=== PATIENT | female | born 1930 | race Caucasian/White ===

== ENCOUNTER 2017-03-08 03:03 | Emergency (ER) | payer OTHER ==
[~2017-03-08 03:03] MED LIST: ASPI81CH37 CHEW; CHOLESTEROL MED; HTN MED; MULT1TAB84 PO
[2017-03-08 03:05] VITALS: BP 132/65; PULSE 93; RESP 18; TEMP 97.5; O2SAT 99
[2017-03-08] MEDS ORDERED: LIDOCAINE HCL 1% PF 30 ML VIAL INFIL ONE (03:15)
[2017-03-08] MEDS ORDERED: TETANUS/DIPHTHERIA TOXOID ADULT 0.5 ML VIAL IM ONE (03:15)
--- NOTE | 2017-03-08 03:44 | PD ---
HPI Chief Complaint: Fall Time Seen by Provider: 03:16 Travel History International Travel<30 days: No Contact w/Intl Traveler<30days: No Traveled to known affect area: No History of Present Illness HPI 86-year-old female presents to the emergency department by EMS transport for evaluation of fall with forehead laceration. Unwitnessed fall. Unknown loss of consciousness. Patient notified EMS and family with life alert. Patient complains of forehead pain. Patient also noted to have abrasion to the left cheek. Patient denies neck pain chest pain rib pain back pain abdominal pain pelvic pain or extremity pain. Patient has extensive arthritis. Patient does not complain of any chest pain palpitations sweats or shortness of breath. No vomiting. Patient reportedly was up getting out of bed and fell onto the floor. Tetanus status unknown. Patient reportedly at her baseline mentation per EMS reportedly provided by family at the scene. PFSH Past Medical History Narrative Medical Hypertension dyslipidemia dementia osteoporosis; bilateral lens surgery hysterectomy right hip surgery; no tobacco use; nursing notes reviewed Hx Anticoagulant Therapy: Yes (BABY ASA DAILY) Cancer: No Cardiovascular Problems: Yes (HTN, CHOL) High Cholesterol: Yes Diabetes: No Diminished Hearing: No Endocrine: No Genitourinary: No Hypertension: Yes Immune Disorder: No Implanted Vascular Access Dvce: Yes Musculoskeletal: Yes (OSTEOPOROSIS) Neurologic: No Psychiatric: No Reproductive: No Respiratory: No Immunizations Current: Yes Menopausal: Yes Past Surgical History Eye Surgery: Yes (OU LENS IMPLANTS) Hysterectomy: Yes Joint Replacement: Yes (R HIP) Other Surgery: Yes Social History Alcohol Use: Yes (OCC) Tobacco Use: No Substance Use: No Allergies-Medications (Allergen,Severity, Reaction): Coded Allergies: No Known Allergies (Verified , 11/19/16) Reported Meds & Prescriptions Reported Meds & Active Scripts Active Reported Claritin-D 24 HR (Loratadine-Pseudoephedrine 24 HR) 10-240 Mg Tab 1 Tab PO DAILY [Cholesterol Med] Unknown Dose [Htn Med] Unknown Dose Multivitamin Adults (Multiple Vitamins W/ Minerals) 1 Tab 1 Tab PO DAILY Aspirin Low Dose (Aspirin) 81 Mg Chew 81 Mg CHEW DAILY Review of Systems ROS Limitations: Poor Historian Except as stated in HPI: all other systems reviewed are Neg General / Constitutional: No: Fever HENT: Positive: Headaches (mild), No: Neck Stiffness, Neck Pain Cardiovascular: No: Chest Pain or Discomfort Respiratory: No: Shortness of Breath Gastrointestinal: No: Vomiting, Abdominal Pain Genitourinary: No: Flank Pain Musculoskeletal: No: Myalgias, Arthralgias, Pain Skin: Positive Other (laceration), No Rash Neurologic: Positive: Headache (mild), No: Weakness, Dizziness, Focal Abnormalities, Coordination Problem, Change in Mentation (at baseline per family ) Hematologic/Lymphatic: No: Easy Bruising Physical Exam Narrative GENERAL: Well-developed elderly female in no acute distress no respiratory distress; GCS 14 (reportedly baseline) SKIN: Warm and dry. Superficial abrasion to the left cheek. HEAD: Atraumatic. Normocephalic. Except for left forehead laceration 2 cm with soft tissue swelling EYES: Pupils equal and round. No scleral icterus. No injection or drainage. ENT: No nasal bleeding or discharge. Mucous membranes pink and moist. NECK: Trachea midline. No JVD. Nontender to direct palpation along the cervical spine no bony step-off. Patient demonstrates range of motion without pain. CARDIOVASCULAR: Regular rate and rhythm. RESPIRATORY: No accessory muscle use. Clear to auscultation. Breath sounds equal bilaterally. GASTROINTESTINAL: Abdomen soft, non-tender, nondistended. Hepatic and splenic margins not palpable. MUSCULOSKELETAL: Extremities without clubbing, cyanosis, or edema. No obvious deformities. NEUROLOGICAL: Awake and alert. No obvious cranial nerve deficits. Motor grossly within normal limits. Five out of 5 muscle strength in the arms and legs. Normal speech. PSYCHIATRIC: Appropriate mood and affect.. Data Data Last Documented VS Vital Signs Date Time Temp Pulse Resp B/P Pulse Ox O2 Delivery O2 Flow Rate FiO2 03/08/17 04:59 88 16 130/66 99 03/08/17 03:52 Room Air 03/08/17 03:05 97.5 Orders Lidocaine Pf 1% Inj (Xylocaine-Mpf 1% In (03/08/17 03:15) Ct Brain W/O Iv Contrast(Rout) (03/08/17 ) Tetanus/Diphtheria Tox Adult (Tetanus/Di (03/08/17 03:15) Ice/Cold Pack (03/08/17 03:09) Acetaminophen (Tylenol) (03/08/17 05:00) MDM Medical Decision Making Medical Screen Exam Complete: Yes Emergency Medical Condition: Yes Medical Record Reviewed: Yes Interpretation(s) CT brain noncontrast reading per radiologist Dr. Uriel Licona, conclusion: "atrophy. No evidence of acute intracranial pathology" Differential Diagnosis CHI, ICH, laceration, contusion Narrative Course Wound site was cleansed with normal saline; CT brain noncontrast ordered; ice pack applied Laceration repaired At 3:40 AM family at bedside report patient does live by herself, unwitnessed fall; family was notified by life alert. @4:[address] brain noncontrast reveals no acute abnormality; this information is shared with the patient and her family. Family is aware that patient will need to follow head injury precautions 24 hours and therefore will need family to assist with her care in the next 24 hours. Family reports the son is typically with her throughout the day --- [id number] reports family plans to make change in living arrangements and falls becoming more frequent. Able to ambulate with walker assistance in the ED without difficulty. Procedures Procedure Narrative LACERATION LOCATION: Left forehead LENGTH: 2 cm NUMBER OF STITCHES/MAKAYLA: 5 REPAIR: The area of the laceration was prepped with Betadine and sterilely draped. The laceration was infiltrated with 1% lidocaine plain. The wound was copiously irrigated and explored without evidence of foreign body, tendon injury or neurovascular injury. The wound was closed using 5-0 Prolene. This was a single layer repair. A sterile dressing was applied. The patient was advised to keep the dressing clean and dry. Patient tolerated the procedure well. Tetanus status updated. Diagnosis Primary Impression: Head injury due to trauma Qualified Code: S09.90XA - Head injury due to trauma, initial encounter Additional Impressions: Forehead laceration Qualified Code: S01.81XA - Forehead laceration, initial encounter Contusion, cheek Qualified Code: S00.83XA - Contusion, cheek, initial encounter Referrals: Primary Care Physician 2 days Patient Instructions: General Instructions Additional Instructions: Follow head injury precautions 24 hours Wound check at 2 days suture removal at 5-7 days May use ice intermittently for first 12-24 hours to area of soft tissue swelling Return to the emergency department for any concerns or change in condition May administer as needed acetaminophen/Tylenol as often as every 4-6 hours for fever 100.4F or greater or for minor pain. Med/Other Pt SpecificInfo: No Change to Meds Disposition: 01 DISCHARGE HOME Condition: Stable Wilma Woodruff MD Mar 08, 2017 03:44
[2017-03-08] MEDS ORDERED: LORA-400 PO (04:01)
--- NOTE | 2017-03-08 04:42 | RADHPO ---
EXAM DATE/TIME: 03/08/2017 03:44 [facility] COMPARISON: CT BRAIN W/O CONTRAST, November 19, 2016, 10:26. INDICATIONS : Fall. Contusion to left forehead. RADIATION DOSE: 62.55 CTDIvol (mGy) MEDICAL HISTORY : Hypertension. SURGICAL HISTORY : None. ENCOUNTER: Initial ACUITY: 1 day PAIN SCALE: 5/10 LOCATION: Left cranial TECHNIQUE: Multiple contiguous axial images were obtained of the head. Using automated exposure control and adjustment of the mA and/or kV according to patient size, radiation dose was kept as low as reasonably achievable to obtain optimal diagnostic quality images. FINDINGS: Noncontrast axial head CT demonstrates the ventricles to be enlarged with a prominent sulcal pattern compatible with atrophy. No acute intracranial hemorrhage, acute cortical infarction, mass or midline shift is seen. Posterior fossa structures are unremarkable. Bone windows demonstrate no abnormality. CONCLUSION: Atrophy. No evidence of acute intracranial pathology. Uriel Licona MD on March 08, 2017 at 4:40 Board Certified Radiologist. This report was verified electronically.
[2017-03-08 04:59] VITALS: BP 130/66
[2017-03-08] MEDS ORDERED: ACETAMINOPHEN 500 MG CPLT PO ONE (05:00)
== END 2017-03-08 05:33 | disposition home or self-care (01) ==
LOC: EDBD → PHED 03:03
DX: S01.81XA Laceration without foreign body of other part of head, initial encounter (principal); S00.83XA Contusion of other part of head, initial encounter; I10 Essential (primary) hypertension; M81.0 Age-related osteoporosis without current pathological fracture; E78.00 Pure hypercholesterolemia, unspecified; E78.5 Hyperlipidemia, unspecified; Z23 Encounter for immunization; Z79.82 Long term (current) use of aspirin; W19.XXXA Unspecified fall, initial encounter; Y93.9 Activity, unspecified; Y92.9 Unspecified place or not applicable; Y99.8 Other external cause status
CPT/HCPCS: 12011; 70450; 90471; 90714

== ENCOUNTER 2017-04-11 12:16 | Emergency (ER) | payer OTHER ==
[~2017-04-11] VITALS: Ht 152.4 cm; Wt 55.0 kg
[~2017-04-11 12:16] MED LIST changes: +LORA-400 PO
[2017-04-11 12:18] VITALS: BP 133/70; PULSE 123; RESP 20; TEMP 98; O2SAT 95
[2017-04-11] MEDS ORDERED: SODIUM CHLORID 0.9% 500 ML INJ 500 ML IV ONE (12:45)
[2017-04-11] MEDS ORDERED: FAMOTIDINE 20 MG/2 ML VIAL IV PUSH ONE (12:45)
[2017-04-11] MEDS ORDERED: PANTOPRAZOLE SODIUM 40 MG VIAL IVP ONE (12:45)
[2017-04-11] MEDS ORDERED: SODIUM CHLORIDE 0.9% FLUSH 10 ML FLUSH IV FLUSH PRN (12:45)
[2017-04-11] MEDS ORDERED: ONDANSETRON HCL 4 MG/2 ML VIAL IVP ONE (12:45)
[2017-04-11] MEDS ORDERED: DICYCLOMINE HCL 20 MG/2 ML VIAL IM ONE (12:45)
[2017-04-11] MEDS ORDERED: SUPETAB20 PO (12:47)
[2017-04-11] MEDS ORDERED: GLUC100017 PO (12:47)
[2017-04-11] MEDS ORDERED: LISI20TA PO (12:47)
[2017-04-11] MEDS ORDERED: CALC600T10 PO (12:47)
[2017-04-11] MEDS ORDERED: ASCO500C PO (12:47)
--- NOTE | 2017-04-11 13:31 | PD ---
HPI Chief Complaint: GI Complaint Time Seen by Provider: 12:44 Travel History International Travel<30 days: No Contact w/Intl Traveler<30days: No Traveled to known affect area: No History of Present Illness HPI Patient presents with her significant other with complaints of nausea and vomiting since last night. Reports poor fluid intake. Denies any blood per emesis. Denies any change in bowel movements. She does suffer from dementia. History of hypertension compliant with Zestoretic. PFSH Past Medical History Hx Anticoagulant Therapy: Yes (BABY ASA DAILY) Cancer: No Cardiovascular Problems: Yes (HTN, CHOL) High Cholesterol: Yes Diabetes: No Diminished Hearing: No Endocrine: No Gastrointestinal Disorders: No Genitourinary: No Hypertension: Yes Immune Disorder: No Implanted Vascular Access Dvce: Yes Musculoskeletal: Yes (OSTEOPOROSIS) Neurologic: No Psychiatric: No Reproductive: No Respiratory: No Immunizations Current: Yes Tetanus Vaccination: < 5 Years ?: Not Menopausal: Yes Past Surgical History Eye Surgery: Yes (OU LENS IMPLANTS) Hysterectomy: Yes Joint Replacement: Yes (R HIP) Other Surgery: Yes Social History Alcohol Use: No Tobacco Use: No Substance Use: No Allergies-Medications (Allergen,Severity, Reaction): Uncoded Allergies: BLOOD PRESSURE PILL (Allergy, Unknown, 04/11/17) Reported Meds & Prescriptions Reported Meds & Active Scripts Active Reported Lisinopril-Hctz 20-12.5 Mg Tab 1 Tab PO DAILY Calcium + D3 (Calcium Carbonate-Cholecalciferol) 600-200 Mg-Unit Tab 1 Tab PO BID Vitamin C (Ascorbic Acid) 500 Mg Cap 500 Mg PO Super B Complex Maxi (B-Complex W/ Folic Acid) 1 Tab 1 Tab PO DAILY Glucosamine (Glucosamine Sulfate) 1,000 Mg Cap 1,000 Mg PO BID Claritin-D 24 HR (Loratadine-Pseudoephedrine 24 HR) 10-240 Mg Tab 1 Tab PO DAILY Aspirin Low Dose (Aspirin) 81 Mg Chew 81 Mg CHEW DAILY Review of Systems General / Constitutional: No: Fever Eyes: No: Visual changes HENT: No: Headaches Cardiovascular: No: Chest Pain or Discomfort Respiratory: No: Shortness of Breath Gastrointestinal: Positive: Nausea, Vomiting, No: Abdominal Pain Genitourinary: No: Dysuria Musculoskeletal: No: Pain Skin: No Rash Neurologic: No: Weakness Psychiatric: No: Depression Endocrine: No: Polydipsia Hematologic/Lymphatic: No: Easy Bruising Physical Exam Narrative GENERAL: Well-nourished, well-developed patient. SKIN: Focused skin assessment warm/dry. HEAD: Normocephalic. EYES: No scleral icterus. No injection or drainage. NECK: Supple, trachea midline. No JVD or lymphadenopathy. CARDIOVASCULAR: Regular rate and rhythm without murmurs, gallops, or rubs. RESPIRATORY: Breath sounds equal bilaterally. No accessory muscle use. GASTROINTESTINAL: Abdomen soft, non-tender, nondistended. MUSCULOSKELETAL: No cyanosis, or edema. BACK: Nontender without obvious deformity. No CVA tenderness. Data Data Last Documented VS Vital Signs Date Time Temp Pulse Resp B/P Pulse Ox O2 Delivery O2 Flow Rate FiO2 04/11/17 14:13 91 16 107/63 97 04/11/17 12:18 98.0 Orders Iv Access Insert/Monitor (04/11/17 12:44) Ecg Monitoring (04/11/17 12:44) Oximetry (04/11/17 12:44) Ondansetron Inj (Zofran Inj) (04/11/17 12:45) Pantoprazole Inj (Protonix Inj) (04/11/17 12:45) Sodium Chloride 0.9% Flush (Ns Flush) (04/11/17 12:45) Famotidine Inj (Pepcid Inj) (04/11/17 12:45) Dicyclomine Inj (Bentyl Inj) (04/11/17 12:45) Sodium Chlorid 0.9% 500 Ml Inj (Ns 500 M (04/11/17 12:45) MDM Medical Decision Making Medical Screen Exam Complete: Yes Emergency Medical Condition: Yes Differential Diagnosis Gastritis, gastroenteritis, esophageal stricture Narrative Course Assessment and plan discussed with patient and significant other at bedside. Tolerated fluid challenge. Diagnosis Primary Impression: Nausea & vomiting Qualified Code: R11.14 - Bilious vomiting with nausea Patient Instructions: General Instructions Additional Instructions: Encouraged a bland BRAT high-fiber diet. Encouraged fluids. Follow-up with PCP. Return to ER with any changes symptoms Med/Other Pt SpecificInfo: Prescription(s) given Scripts Ranitidine (Zantac)150 Mg [id number] Mg PO BID #30 TAB Ref 0 Prov:JoseA Perez MD 04/11/17 Ondansetron (Zofran)4 Mg Tab4 Mg PO Q6HR PRN (NAUSEA OR VOMITING) #20 TAB Ref 0 Prov:Jose A Perez MD 04/11/17 Disposition: 01 DISCHARGE HOME Condition: Good Jose A Perez MD April 11, 2017 13:31
[2017-04-11 13:35] VITALS: BP 99/68; PULSE 88; RESP 16; O2SAT 96
[2017-04-11 13:37] VITALS: O2SAT 96
[2017-04-11 14:13] VITALS: BP 107/63; PULSE 91; RESP 16; O2SAT 97
[2017-04-11] MEDS ORDERED: ZANT150T2 PO (14:34)
[2017-04-11] MEDS ORDERED: ZOFR4TAB PO (14:34)
== END 2017-04-11 14:57 | disposition home or self-care (01) ==
LOC: PHED 12:16
DX: R11.14 Bilious vomiting (principal); E78.00 Pure hypercholesterolemia, unspecified; I10 Essential (primary) hypertension; Z79.82 Long term (current) use of aspirin; M81.0 Age-related osteoporosis without current pathological fracture
CPT/HCPCS: 96361; 96372; 96374; 96375; 99283; C9113; J0500; J2405; J7040